=== PATIENT | female | born 1970 | race Two or more races ===

== ENCOUNTER 2025-08-05 21:48 | Emergency (ER) | payer MEDICAID, SELFPAY ==
[2025-08-05 22:03] VITALS: BP 164/71; PULSE 74; RESP 18; TEMP 37.1; O2SAT 98
--- NOTE | 2025-08-05 22:08 | PD.EDDENTL ---
ED Dental RME/HPI General Chief complaint: Dental/Oral/Throat Stated complaint: DENTAL PAIN Time Seen by Provider: 08/05/25 21:53 Arrival date/time: 08/05/25 21:48 This is a case of 54-year-old female with history of hypertension came in in the emergency room due to right upper dental pain for 3 days worsening of the symptoms this patient decided to sought consult here in the emergency room no other symptoms noted Limitations: no limitations Related Data Previous Rx's ?Medication ?Instructions ?Recorded blood-glucose meter (CareTouch #1 ea 08/06/22 Glucose Monitoring System kit) flash glucose scanning reader #1 ea 09/10/22 (FreeStyle Sony 2 [place]) flash glucose sensor (FreeStyle #2 ea 09/10/22 Sony 2 Sensor kit) pen needle, diabetic 32 gauge x #100 ea 09/24/2211/19 (Novofine 32) blood sugar diagnostic (True #100 ea 11/26/22 Metrix Glucose Test Strip) lancets 30 gauge and blood glucose #420 ea 11/26/22 strips combo pack losartan 50 mg tablet 50 mg PO QDAY 1 month #30 tabs 01/07/23 metformin 1,000 mg tablet 1,000 mg PO BID #30 tabs 03/16/23 clindamycin HCl 300 mg capsule 300 mg PO Q6H 10 days #40 caps 08/05/25 hydrocodone 5 mg-acetaminophen 325 1 tab PO Q6H PRN pain #12 tabs 08/05/25 mg tablet Allergies Allergy/AdvReac Type Severity Reaction Status Date / Time No Known Allergies Allergy Verified 08/05/25 21:49 Review of Systems Review of Systems Systems Reviewed: All systems reviewed, normal except as documented Constitutional Constitutional: Reports system reviewed and no additional complaints, except as documented, Reports as per HPI and Denies headache(s) ENT Ears, Nose, Mouth, and Throat: Reports system reviewed and no additional complaints, except as documented, Reports as per HPI, Denies abnormal hearing, Denies bleeding gums, Denies change in voice, Reports dental pain, Denies disequilibrium, Denies dizziness, Denies dry mouth, Denies dysphagia, Denies ear discharge, Denies otalgia, Denies epistaxis, Denies facial pain, Denies halitosis, Denies headache(s), Denies hearing loss, Denies hoarseness, Denies lip swelling, Denies mouth lesions, Denies mouth pain, Denies nasal congestion, Denies nasal discharge, Denies nasal obstruction, Denies nasal trauma, Denies neck mass, Denies neck pain, Denies nose pain, Denies odynophagia, Denies post nasal drip, Denies sinus pain, Denies sinus pressure, Denies sore throat, Denies throat swelling, Denies tinnitus, Denies tongue swelling and Denies vertigo Cardiovascular Cardiovascular: Reports system reviewed and no additional complaints, except as documented and Reports as per HPI Respiratory Respiratory: Reports system reviewed and no additional complaints, except as documented and Reports as per HPI Gastrointestinal Gastrointestinal: Reports system reviewed and no additional complaints, except as documented, Reports as per HPI, Denies dysphagia and Denies odynophagia Musculoskeletal Musculoskeletal: Denies neck pain Neurologic Neurologic: Reports system reviewed and no additional complaints, except as documented, Reports as per HPI, Denies abnormal hearing, Denies disequilibrium, Denies dizziness, Denies headache(s) and Denies vertigo Allergic/Immunologic Allergic/Immunologic: Denies lip swelling, Denies throat swelling and Denies tongue swelling Past Medical History Past Medical History NEUROLOGIC: Negative Neurological Disorders, Cerebrovascular Accident, Transient Ischemic Attacks (TIA) (in history but pt denies), Dementia, Alzheimer's Disease, Parkinson's Disease, Brain Tumor, Meningitis, Seizures, Epilepsy, Multiple Sclerosis, Cerebral Palsy, Amyotrophic Lateral Sclerosis (ALS/Yue Gehrig's), Guillain-[place] Syndrome, Spina Bifida, Paralysis, Benito's Palsy, Subdural Hematoma, Migraine, Head Trauma, Spinal Cord Injury or Traumatic Brain Injury CARDIAC: Positive Hypertension; Negative Cardiac Disorders, Myocardial Infarction, Cardiac Arrhythmia, Atrial Fibrillation, Angina, Heart Murmur, Coronary Artery Disease, Atherosclerotic Heart Disease, Peripheral Vascular Disease, Hypercholesterolemia, Aneurysm, Congestive Heart Failure, Congenital Heart Disease, Valvular Heart Disease, Rheumatic Fever, Cardiomyopathy, Edema, Pericarditis, Cellulitis, Deep Vein Thrombosis, Hypotension or Varicose Veins RESPIRATORY: Negative Chronic Obstructive Pulmonary Disease (COPD), Asthma, Bronchitis, Emphysema, Pneumonia, Pulmonary Fibrosis, Cystic Fibrosis, Tuberculosis, Pulmonary Embolism, Pulmonary Edema or Sleep Apnea GASTROINTESTINAL: Positive Hemorrhoids; Negative Gastrointestinal Disorders, Hepatitis, Cirrhosis, Pancreatitis, Celiac Disease, Gall Bladder Disease, Gastrointestinal Bleed, Esophageal Varices, Reyna's Esophagus, Colitis, Ulcerative Colitis, Diverticulosis, Ulcer, Colorectal Cancer, Irritable Bowel, Crohn's Disease, Obstructive Bowel, Hiatal Hernia, Gastroesophageal Reflux Disease or Obesity GENITOURINARY: Negative Genitourinary Disorders, Renal Disease, Kidney Stones, Polycystic Kidney Disease, Neurogenic Bladder, Inguinal Hernia, Dialysis, Prostate Cancer or Benign Prostatic Hyperplasia REPRODUCTIVE: Positive Previous Pregnancies; Negative Breast Cancer, Endometriosis, Genital Herpes, Gonorrhea, Pelvic Inflammatory Disease, Syphilis, Testicular Cancer or Uterine Prolapse MUSCULOSKELETAL: Negative Musculoskeletal Disorders, Muscular Dystrophy, Myasthenia Gravis, Marfan's Syndrome, Bone Cancer, Arthritis, Rheumatoid Arthritis, Osteoporosis, Degenerative Disk Disease, Gout, Scoliosis, Carpal Tunnel Syndrome, Fibromyalgia, Fractures, Degenerative Joint Disease, Osteomyelitis or Poliovirus ENT: Positive Cataracts; Negative Glaucoma, Blind, Retinal Detachment, Macular Degeneration, Deafness, Head Trauma or Eye Prosthesis ENDOCRINE: Positive Diabetes Mellitus Type 2; Negative Endocrine Disorders, Diabetes Mellitus Type 1, Hypoglycemia, Valerie's Syndrome, Murdo's Disease, Hyperthyroidism, Hypothyroidism, Parathyroid Disease, Pituitary Disease, Systemic Lupus Erythematosus, Syndrome of Inappropriate Antidiuretic Hormone (SIADH), Adrenal Disease or Graves' Disease HEMATOLOGIC: Negative Blood Disorders, Anemia, Leukemia, Hemophilia, Thalassemia, Sickle Cell Disease or Clotting Problems PSYCHO/SOCIAL: Negative Psychiatric Problems, Schizophrenia, Recreational Drug Use, Bipolar Disorder, Depression, Anxiety, Behavior Problems, Self-Mutilation, Attention Deficit Disorder, Attention Deficit Hyperactivity Disorder, Depression, Post Traumatic Stress Disorder or Eating Disorder OTHER HISTORY: Negative Hospitalization, Autoimmune Disease, Down Syndrome, Autism, Developmental Delay, Shingles, Falls, Blood Transfusions, Blood Transfusion Reaction, Anesthesia Reactions, Organ Transplant, Chemotherapy, Radiation Therapy, Hyperbaric Therapy, MRSA, VRSA, Vancomycin-Resistant Enterococci, Human Immunodeficiency Virus (HIV), Measles, Mumps, Rubella (Citizen Of [place] Measles), Clostridium Difficile, Cancer, Breast Cancer, Cervical Cancer, Colorectal Cancer, Ovarian Cancer, Prostate Cancer or Testicular Cancer Family History FAMILY HISTORY: Negative Family Psychiatric Problems, Family Respiratory Disorders, Family Cardiac Disorders, Family Gastrointestinal Problems, Family Cancer, Family Surgery or Family Anesthesia Reaction Surgical History SURGICAL: Positive Abdominal Surgery (choleystctomy); Negative Cardiac Surgery, Open Heart Surgery, Coronary Artery Bypass Graft, Valve Replacement, Vascular Surgery, Coronary Stent, Cardiac Catheterization, Pacemaker, Angiogram, Auto Implanted Cardiovert Defib, Carotid Endarterectomy, Endocrine Surgery, Thyroidectomy, Ear Surgery, Tympanostomy Tube, Eye Surgery, Nose Surgery, Oral Surgery, Tonsillectomy, Adenoidectomy, Cochlear Implant, Corneal Transplant, Throat Surgery, Tracheostomy, Gastric Bypass Surgery, Gastrostomy, Bowel Surgery, Nephrectomy, Transurethral Resection, Joint Replacement, Amputation, Open Reduction Internal Fixation, Arthroscopy, Neurologic Surgery, Brain Shunt, Mastectomy, Lumpectomy, Hysterectomy, Tubal Ligation, Section, Vasectomy or Organ Transplant Social History SMOKING STATUS: Never smoker SECOND HAND EXPOSURE: No SUBSTANCE USE: does not use ED Exam General Limitations: Present no limitations General appearance: Present alert, in no apparent distress and other (Patient is awake alert oriented not in distress nontoxic looking well-hydrated well-nourished) Head Head exam: Present atraumatic, normocephalic and normal inspection Eye Eye exam: Present normal appearance, PERRL and EOMI ENT ENT exam: Present normal exam, normal oropharynx, mucous membranes moist and other (HEENT exam is normal and unremarkable) Expanded ENT Exam Teeth numbered:  1. Fractured (No fractured teeth no avulsion noted no dental caries) and Dental Tenderness (Mild tenderness on tooth #1 and #2 with mild swelling of the gum and redness but no abscess) Neck Neck exam: Present normal inspection, full ROM and trachea midline; Absent tenderness, meningismus, lymphadenopathy or thyromegaly Chest Chest inspection: Present normal inspection and symmetric chest wall rise; Absent tenderness Respiratory Respiratory exam: Present normal lung sounds bilaterally; Absent respiratory distress, wheezes, stridor, accessory muscle use or prolonged expiratory phase Cardiovascular Cardiovascular exam: Present regular rate, normal rhythm and normal heart sounds; Absent bradycardia, tachycardia, irregular rhythm or systolic murmur Abdominal Exam Abdominal exam: Present soft and normal bowel sounds; Absent distention, tenderness, guarding, rebound, rigidity, diminished bowel sounds, hyperactive bowel sounds, hypoactive bowel sounds or organomegaly Extremities Exam Extremities exam: Present normal inspection and full ROM Back Exam Back exam: Present normal inspection and full ROM Neurological Exam Neurological exam: Present alert, oriented X3, CN II-XII intact, normal gait and reflexes normal; Absent motor sensory deficit Psychiatric Psychiatric exam: Present normal affect and normal mood Skin Skin exam: Present warm, dry, intact, normal color and other (No cellulitis noted) Course Quality Measures none Orders Category Date Time Status Clindamycin [Cleocin] Med 08/05/25 22:03 Once 300 mg PO X1 ONE HYDROcodone*/APAP 5/325 [Chancellor 5/325] Med 08/05/25 22:03 Once 1 tab PO X1 ONE Vital Signs Vital signs: Vital Signs Temperature 98.8 F 08/05/25 22:03 Pulse Rate 74 08/05/25 22:03 Respiratory Rate 18 08/05/25 22:03 Blood Pressure 164/71 H 08/05/25 22:03 Pulse Oximetry (%) 98 08/05/25 22:03 Oxygen Delivery Method Room Air 08/05/25 22:03 Oxygen saturation is 98% in room air normal Dental / Oral MDM Narrative MDM Narrative:: This is a case of 54-year-old female with history of hypertension came in in the emergency room due to right upper dental pain for 3 days worsening of the symptoms this patient decided to sought consult here in the emergency room no other symptoms noted physical examination patient is awake alert oriented not in distress nontoxic looking well-hydrated well-nourished HEENT exam normal except dental exam noted mild to moderate tenderness on the tooth #1 tooth #2 with mild gum swelling and redness but no abscess no mandibular or facial cellulitis no tooth avulsion showed no tooth fracture noted tooth dental caries based on my physical examination and history patient symptoms suggestive of tooth infection patient was given here in the emergency room clindamycin for infection and Chancellor for pain patient condition markedly improved at the time of exam no signs and symptoms of Puma's angina nor facial cellulitis patient will be discharged with cephalexin for tooth infection and Chancellor for pain patient was advised to see dentist in 2 days for evaluation and possible dental procedure and follow-up with PCP in 2 days for reevaluation return precaution to the emergency room for worsening symptoms is advised Patient was discharged with comfortable condition walking with stable gait. Patient verbalized no further complains explained diagnosis and answered patient question. Patient is comfortable with the proposed management plan including the need to follow up with his/her primary care physician and any specialist if applicable Discussed patient for any urgent condition or worsening sx, He/She needed to go to emergency room immediately or call 911. Patient acknowledge the responsibility to follow up as instructed and to monitor her/his symptoms. For any persistence of the symptoms for more than 3-5 days return precaution advised. Discussed the result of the test and was given printed discharge instruction Patient data External records reviewed:: [facility] previous records Clinical information provided by:: patient Social determinants that could affect healthcare access:: none Patient has the following chronic illnesses:: None How is presenting disease/condition affected by chronic disease/condition?: no chronic disease Evaluation data The following diagnostics were reviewed and interpreted by me:: other (specify) Lab and/or radiology exams considered but not ordered:: None Interpretation Summary: None Medications / Prescriptions Medications or Prescriptions considered but not ordered:: Given Medication administrations:: Medication Administration History Hydrocodone Bitart/Acetaminophen (Hydrocodone/Apap 5/325 Tablet) 1 tab PO X1 ONE Stop: 08/05/25 22:04 Clindamycin HCl (Clindamycin 150 Mg Capsule) 300 mg PO X1 ONE Stop: 08/05/25 22:04 Given Consultations Consultation(s) initiated? (list below): No Diagnosis Dental Differential Diagnosis: gingival abscess, dental caries, toothache, dental abscess, fracture of tooth and other (To abscessed tooth infection) Most likely diagnosis given after review of the tests above:: Tooth infection Admission Indicated Admission indicated?: not indicated Explain why admission is indicated or not indicated:: Not indicated Admission Request Was there a request for admission?: No Admission Attestation Admission request attestation: Not indicated Disposition Plan Disposition Plan: Discharge Discharge Attestation Discharge Attestation: The patient and all family members were given an opportunity to ask questions and understood the discharge instructions. Discharge instructions specifically effects, indications for sooner follow up or return to the emergency department, and the expected course of current diagnosis. Patient condition: Stable Discharge Plan Plan Patient Disposition: HOME (Self Care) Patient condition on transfer: Stable Prescriptions/Referrals Prescriptions/Med Rec: New clindamycin HCl 300 mg capsule 300 mg PO Q6H 10 Days Qty: 40 0RF hydrocodone-acetaminophen 5-325 mg tablet 1 tab PO Q6H MDD max 4 tabs per day PRN (Reason: pain) Qty: 12 0RF No Action (DME) blood-glucose meter [CareTouch Glucose Monitoring] Kit See Rx Instructions .Route Qty: 1 0RF Rx Instructions: As directed (DME) FreeStyle Sony 2 [place] Misc See Rx Instructions .Route Qty: 1 0RF Rx Instructions: As directed (DME) FreeStyle Sony 2 Sensor Kit See Rx Instructions .Route Qty: 2 3RF Rx Instructions: As directed (DME) pen needle, diabetic [Novofine 32] 32 gauge x 1/4 needle See Rx Instructions .Route Qty: 100 5RF Rx Instructions: As directed losartan 50 mg tablet 50 mg PO QDAY 30 Days Qty: 30 1RF (DME) lancets-blood glucose strips 30 gauge combo pack See Rx Instructions .Route Qty: 420 1RF Rx Instructions: As directed (DME) True Metrix Glucose Test Strip Strip See Rx Instructions .Route Qty: 100 3RF Rx Instructions: As directed metformin 1,000 mg tablet 1,000 mg PO BID Qty: 30 0RF Problem List Clinical Impression: Tooth infection Patient/Caregiver Discharge Instructions Education Materials: ED Tooth Abscess Additional Instructions: Follow-up with your primary care physician in 2 days for reevaluation it is very important to see your dentist in 2 days for reevaluation and possible dental procedure recurrence persistent worsening symptoms or any emergent concern call 911 or go to the nearest emergency room take your medication as directed finish the course of antibiotic oral care is at advsied Print Language: Slovenian Stand Alone Forms: Alanna Award Info., Patient Portal Info Letter PA/MIXING PICKER TENDER Supervising Physician PA/MIXING PICKER TENDER Supervising Physician: Dr. Oquendo
[2025-08-05 22:29] VITALS: BMI 30.9
[2025-08-05] MEDS: CLINDAMYCIN 150 MG CAPSULE 300 MG PO (22:33)
[2025-08-05] MEDS: HYDROcodone/APAP 5/325 TABLET 1 TAB PO (22:33)
== END 2025-08-05 22:36 | disposition home or self-care (01) ==
LOC: SERX 22:38
PROVIDERS: Emergency Provider Family Medicine
DX: K04.7 Periapical abscess without sinus (principal); I10 Essential (primary) hypertension; E11.9 Type 2 diabetes mellitus without complications; Z79.84 Long term (current) use of oral hypoglycemic drugs; Z79.899 Other long term (current) drug therapy
CPT/HCPCS: 99283; A9270